=== PATIENT | male | born 1985 | race Caucasian/White ===

== ENCOUNTER 2018-11-25 13:55 | Emergency (ER) | payer BC ==
[~2018-11-25] VITALS: Ht 195.6 cm; Wt 145.5 kg
[2018-11-25 14:01] VITALS: TEMP 97.8
[2018-11-25] MEDS ORDERED: NORCO 325 MG-7.1 TAB PO (16:17)
[2018-11-25] MEDS ORDERED: CRUTCHES MC (16:41)
[2018-11-25 17:23] VITALS: BP 142/95; PULSE 76
== END 2018-11-25 17:24 | disposition home or self-care (01) ==
LOC: COL.ER 13:55
DX: S89.91XA Unspecified injury of right lower leg, initial encounter (principal); S40.022A Contusion of left upper arm, initial encounter; S79.911A Unspecified injury of right hip, initial encounter; S40.021A Contusion of right upper arm, initial encounter; W17.1XXA Fall into storm drain or manhole, initial encounter; Y92.59 Other trade areas as the place of occurrence of the external cause